=== PATIENT | female | born 1955 | race Caucasian/White ===

== ENCOUNTER 2021-05-19 11:29 | Emergency (ER) | payer MEDICARE, OTHER ==
[2021-05-19 11:37] VITALS: BP 152/99
--- NOTE | 2021-05-19 12:21 | XRAY Report ---
PROCEDURE: Foot 3 View LT INDICATIONS: Left foot pain TECHNIQUE: 3 views of the foot were acquired. COMPARISON: None. FINDINGS: BONES: No acute, displaced fracture or dislocation. Joint space loss with sclerosis of the opposing a rticular surface involving the midfoot, most prominent along the cuneonavicular articulations. SOFT TISSUES: No focal abnormality. IMPRESSION: 1.Degenerative changes of the midfoot, which is nonspecific may reflect neuropathic change. Reviewed by: Cecilio Palumbo MD on 05/19/2021 12:19 PM PDT Approved by: Cecilio Palumbo MD on 05/19/2021 12:19 PM PDT Station ID: [id number]
--- NOTE | 2021-05-19 12:52 | ED Physician Documentation ---
PD HPI LOWER EXT INJURY - Stated complaint Stated Complaint: LT FOOT PX - Chief complaint Chief Complaint: Ext Problem - History obtained from History obtained from: Patient - Additional information Additional information: For about 3 to 4 days without specific trauma she has had pain on the lateral left foot radiating towards the lateral malleolus. It hurts to walk especially over rough surfaces. She has no underlying health conditions. She is visiting from [place]. Review of Systems Constitutional: reports: Reviewed and negative Eyes: reports: Reviewed and negative Ears: reports: Reviewed and negative PD PAST MEDICAL HISTORY - Allergies Allergies/Adverse Reactions: Allergies Allergy/AdvReac Type Severity Reaction Status Date / Time caro G-F 20 [From [employer]] Allergy Unknown Verified 05/19/21 11:37 PD ED PE NORMAL - Vitals Vital signs reviewed: Yes - General General: Alert and oriented X 3, No acute distress - Extremities Extremities: Other (Lateral foot tenderness over the peroneal tendon and significant pain with inversion of the ankle. No plantar fascia tenderness or pain with flexion or extension at the ankle.) - Neuro Neuro: Alert and oriented X 3, Normal speech Results - Vitals Vitals: Vital Signs - 24 hr 05/19/21 11:32 Temperature 36.2 C L Heart Rate 85 Respiratory 16 Rate Blood Pressure 152/99 H O2 Saturation 97 Oxygen O2 Source Room air - Rads (name of study) Three-view x-ray of the left foot demonstrates degenerative changes Radiology: EMP read contemporaneously PD MEDICAL DECISION MAKING - ED course ED course: 65-year-old woman presents with what is most consistent with peroneal tendinitis based on the location. I recommended a lace up ankle brace available [id number] and combination Tylenol and ibuprofen. Departure - Departure Disposition: 01 Home, Self Care Clinical Impression: Peroneal tendinitis of left lower leg Condition: Good Record reviewed to determine appropriate education?: Yes Instructions: Tendinitis Foot Comments: Continue Voltaren, also combine [id number] Tylenol and ibuprofen per package instructions. Return for new or worsening symptoms. Also recommend you get an ankle brace such as the one we discussed to keep the foot from rotating. Follow-up with your doctor on return home if not better.
== END 2021-05-19 13:11 | disposition home or self-care (01) ==
LOC: ED 11:29
DX: M76.72 Peroneal tendinitis, left leg (principal); M19.072 Primary osteoarthritis, left ankle and foot
CPT/HCPCS: 99282; 99283